=== PATIENT | female | born 1990 | race Caucasian/White ===

== ENCOUNTER 2017-07-28 18:25 | Emergency (ER) | payer BC, OTHER ==
[~2017-07-28] VITALS: Ht 172.7 cm; Wt 94.5 kg
[2017-07-28 19:32] LABS: URINE AMPHETAMINE SCREEN NEGATIVE (Neg); URINE BARBITUATE SCREEN NEGATIVE (Neg); URINE BENZODIAZEPINES SCREEN NEGATIVE (Neg); URINE CANNABINOID SCREEN POSITIVE (Neg); URINE COCAINE SCREEN NEGATIVE (Neg); URINE METHADONE SCREEN NEGATIVE (Neg); URINE OPIATE SCREEN NEGATIVE (Neg); URINE PHENCYCLIDINE SCREEN NEGATIVE (Neg)
[2017-07-28 21:06] VITALS: BP 117/68
== END 2017-07-28 21:08 | disposition home or self-care (01) ==
LOC: ER 18:26
DX: G47.00 Insomnia, unspecified (principal); R44.3 Hallucinations, unspecified; F41.9 Anxiety disorder, unspecified; G89.29 Other chronic pain; F17.200 Nicotine dependence, unspecified, uncomplicated; F12.10 Cannabis abuse, uncomplicated
CPT/HCPCS: 80305; 99283; 99284